=== PATIENT | male | born 1965 | race African-American/Black ===

== ENCOUNTER → 2017-07-11 | Outpatient (CLI) | payer OTHER | LOC: RAD 12:55 | PROVIDERS: ATTEND Podiatrist Foot & Ankle Surgery | DX: M25.572 Pain in left ankle and joints of left foot (principal); M76.70 Peroneal tendinitis, unspecified leg | CPT/HCPCS: 73721 ==

== ENCOUNTER → 2017-09-20 | Outpatient (CLI) | payer OTHER ==
[~2017-09-20] MED LIST: LEXISCAN IV ONE
== END ==
LOC: RAD 07:48
PROVIDERS: ATTEND Internal Medicine Cardiovascular Disease
DX: R07.89 Other chest pain (principal)
CPT/HCPCS: 78452; 93017; A4222; A9502; J2785